=== PATIENT | male | born 1940 | race Caucasian/White ===

== ENCOUNTER 2018-12-31 15:15 | Inpatient (IN) | payer OTHER ==
[2018-12-31 17:40] LABS: ADD MAN DIFF? NO
[2018-12-31 17:43] LABS: WHITE BLOOD COUNT 6.7 10^3/ul (4.8-10.8)
[2018-12-31 17:43] LABS: BASOPHILS % 0.4 % (0.0-2.0); EOSINOPHILS # 0.1 10^3/ul (0.0-0.5); HEMATOCRIT 34.4 % (42.0-52.0); HEMOGLOBIN 11.9 g/dl (14.0-18.0); LYMPHOCYTES % 14.4 % (15.0-51.0); MEAN CORPUSCULAR HEMOGLOBIN 32.2 pg (29.0-33.0); MEAN CORPUSCULAR HGB CONC 34.6 g/dl (32.0-37.0); MEAN PLATELET VOLUME 9.9 fl (7.4-10.4); MONOCYTE # 0.4 10^3/ul (0.3-0.9); MONOCYTES % 6.2 % (0.0-11.0); NEUTROPHIL # 5.2 10^3/ul (1.6-7.5); NEUTROPHILS % 77.7 % (39.0-77.0); PLATELET COUNT 205 10^3/UL (140-415); RED CELL DISTRIBUTION WIDTH 13.2 % (11.5-14.5)
[2018-12-31 17:58] LABS: INR 0.93; PROTIME 12.6 Sec (11.9-14.9)
[2018-12-31 17:59] LABS: PARTIAL THROMBOPLASTIN TIME 30.9 Sec (23.0-35.0)
[2018-12-31 18:00] LABS: ALANINE AMINOTRANSFERASE 37 IU/L (13-69); ALBUMIN 4.4 g/dl (3.3-4.9); ALBUMIN/GLOBULIN RATIO 1.37; ALKALINE PHOSPHATASE 78 IU/L (42-121); ANION GAP 9 (5-13); ASPARTATE AMINO TRANSFERASE 30 IU/L (15-46); BILIRUBIN,INDIRECT 1.1 mg/dl (0-1.1); BILIRUBIN,TOTAL 1.1 mg/dl (0.2-1.3); BLOOD UREA NITROGEN 16 mg/dl (7-20); CALCIUM 9.5 mg/dl (8.4-10.2); CARBON DIOXIDE 24 mmol/L (21-31); CHLORIDE 102 mmol/L (97-110); CREATININE 0.75 mg/dl (0.61-1.24); GLUCOSE 196 mg/dl (70-220); POTASSIUM 4.2 mmol/L (3.5-5.1); SODIUM 135 mmol/L (135-144); TOTAL PROTEIN 7.6 g/dl (6.1-8.1)
[2018-12-31 18:12] LABS: B-TYPE NATRIURETIC PEPTIDE 1190 PG/ML (0-450); TROPONIN-I 0.024 ng/ml (0.000-0.120)
[2018-12-31] MEDS: FUROSEMIDE 40 MG INJ IV ×2 (18:33→22:18)
[2018-12-31] MEDS: NITROGLYCERIN 2% 1 GM OINT PKT TD (18:34)
[2018-12-31] MEDS ORDERED: ACETAMINOPHEN 325 MG TAB PO (19:00)
[2018-12-31] MEDS ORDERED: ONDANSETRON 4 MG INJ IV (19:00)
[2018-12-31] MEDS ORDERED: NACL 0.9% 3 ML SYG IV (19:30)
[2018-12-31] MEDS ORDERED: ROSUVASTATIN 10 MG TAB PO (21:00)
[2018-12-31] MEDS: ASPIRIN 81 MG TAB PO (22:17)
[2018-12-31] MEDS: ATORVASTATIN 40 MG TAB PO ×2 (22:18→22:29)
[2018-12-31] MEDS: TAMSULOSIN (SR) 0.4 MG CAP PO ×2 (22:18→22:29)
[2018-12-31 23:16] LABS: CREATINE KINASE 254 IU/L (23-200)
[2018-12-31 23:30] LABS: CK INDEX 2.9
[2018-12-31 23:43] LABS: CK-MB 7.35 ng/ml (0.0-2.4)
[2019-01-01] MEDS ORDERED: ATROPINE 1 MG/10 ML SYRINGE IV (03:00)
[2019-01-01 06:08] LABS: ADD MAN DIFF? NO
[2019-01-01 06:17] LABS: BASOPHILS % 0.6 % (0.0-2.0); EOSINOPHILS # 0.1 10^3/ul (0.0-0.5); EOSINOPHILS % 1.8 % (0.0-7.0); HEMOGLOBIN 11.3 g/dl (14.0-18.0); LYMPHOCYTES % 20.7 % (15.0-51.0); MEAN CORPUSCULAR HEMOGLOBIN 32.2 pg (29.0-33.0); MEAN CORPUSCULAR HGB CONC 35.3 g/dl (32.0-37.0); MEAN CORPUSCULAR VOLUME 91.2 fl (82.0-101.0); MEAN PLATELET VOLUME 9.5 fl (7.4-10.4); MONOCYTE # 0.4 10^3/ul (0.3-0.9); MONOCYTES % 7.2 % (0.0-11.0); NEUTROPHIL # 3.4 10^3/ul (1.6-7.5); NEUTROPHILS % 69.5 % (39.0-77.0); PLATELET COUNT 194 10^3/UL (140-415); RED BLOOD COUNT 3.51 10^6/ul (4.70-6.10); RED CELL DISTRIBUTION WIDTH 13.2 % (11.5-14.5)
[2019-01-01 06:17] LABS: WHITE BLOOD COUNT 4.9 10^3/ul (4.8-10.8)
[2019-01-01] MEDS: FUROSEMIDE 40 MG INJ IV ×2 (06:32→17:59)
[2019-01-01 06:39] LABS: IRON 41 ug/dl (35-150)
[2019-01-01 06:47] LABS: TROPONIN-I 0.062 ng/ml (0.000-0.120)
[2019-01-01 06:49] LABS: % IRON SATURATION 14 % SAT (22-52); TOTAL IRON BINDING CAPACITY 296 ug/dl (241-421)
[2019-01-01 06:51] LABS: CK-MB 7.37 ng/ml (0.0-2.4)
[2019-01-01 07:02] LABS: CK INDEX 2.3; CREATINE KINASE 318 IU/L (23-200)
[2019-01-01 07:16] LABS: HEMOGLOBIN A1C 6.4 % (0-5.9)
[2019-01-01 07:58] LABS: ALANINE AMINOTRANSFERASE 31 IU/L (13-69); ALBUMIN 3.8 g/dl (3.3-4.9); ALBUMIN/GLOBULIN RATIO 1.31; ALKALINE PHOSPHATASE 66 IU/L (42-121); ANION GAP 4 (5-13); ASPARTATE AMINO TRANSFERASE 28 IU/L (15-46); BILIRUBIN,INDIRECT 0.9 mg/dl (0-1.1); BILIRUBIN,TOTAL 0.9 mg/dl (0.2-1.3); BLOOD UREA NITROGEN 15 mg/dl (7-20); CALCIUM 9.4 mg/dl (8.4-10.2); CARBON DIOXIDE 30 mmol/L (21-31); CHLORIDE 102 mmol/L (97-110); CHOL/HDL RATIO 3.1 RATIO; CHOLESTEROL 126 mg/dl (100-200); CREATININE 0.86 mg/dl (0.61-1.24); GLUCOSE 153 mg/dl (70-220); HDL CHOLESTEROL 40 mg/dl (31-75); LDL CHOLESTEROL,CALCULATED 67 mg/dl; MAGNESIUM 1.8 mg/dl (1.7-2.5); PHOSPHORUS 4.3 mg/dl (2.5-4.9); POTASSIUM 3.7 mmol/L (3.5-5.1); SODIUM 136 mmol/L (135-144); TOTAL PROTEIN 6.7 g/dl (6.1-8.1); TRIGLYCERIDES 97 mg/dl (0-149)
[2019-01-01] MEDS: AMLODIPINE 10 MG TAB PO (08:26)
[2019-01-01] MEDS: ASPIRIN (EC) 81 MG TAB PO (08:26)
[2019-01-01] MEDS: hydrALAzine 20 MG INJ IV (08:30)
[2019-01-01] MEDS ORDERED: NON-FORMULARY/PATIENT OWN MED (Irbesartan-Hydrochlorothiazide 1 EACH) PO (09:00)
[2019-01-01] MEDS: ENOXAPARIN 40 MG/0.4 ML SYG SC (09:37)
[2019-01-01] MEDS: HYDROCHLOROTHIAZIDE 12.5 MG CAP PO (10:39)
[2019-01-01] MEDS: LOSARTAN 50 MG TAB PO (10:39)
[2019-01-01] MEDS: TAMSULOSIN (SR) 0.4 MG CAP PO (20:37)
[2019-01-01] MEDS: ATORVASTATIN 40 MG TAB PO (20:37)
[2019-01-02] MEDS: FUROSEMIDE 40 MG INJ IV (06:09)
[2019-01-02] MEDS: LOSARTAN 50 MG TAB PO (08:53)
[2019-01-02] MEDS: AMLODIPINE 10 MG TAB PO (08:53)
[2019-01-02] MEDS: HYDROCHLOROTHIAZIDE 25 MG TAB PO (08:54)
[2019-01-02] MEDS: ASPIRIN (EC) 81 MG TAB PO (08:54)
[2019-01-02] MEDS: ENOXAPARIN 40 MG/0.4 ML SYG SC (09:00)
[2019-01-02 10:41] LABS: ADD MAN DIFF? NO
[2019-01-02 10:43] LABS: WHITE BLOOD COUNT 5.4 10^3/ul (4.8-10.8)
[2019-01-02 10:43] LABS: BASOPHILS % 0.4 % (0.0-2.0); EOSINOPHILS # 0.1 10^3/ul (0.0-0.5); EOSINOPHILS % 2.6 % (0.0-7.0); LYMPHOCYTES # 0.8 10^3/ul (0.8-2.9); LYMPHOCYTES % 14.9 % (15.0-51.0); MEAN CORPUSCULAR HEMOGLOBIN 32.1 pg (29.0-33.0); MEAN CORPUSCULAR HGB CONC 35.3 g/dl (32.0-37.0); MEAN CORPUSCULAR VOLUME 90.9 fl (82.0-101.0); MEAN PLATELET VOLUME 9.9 fl (7.4-10.4); MONOCYTE # 0.4 10^3/ul (0.3-0.9); NEUTROPHIL # 4.1 10^3/ul (1.6-7.5); NEUTROPHILS % 74.9 % (39.0-77.0); PLATELET COUNT 208 10^3/UL (140-415); RED BLOOD COUNT 3.74 10^6/ul (4.70-6.10); RED CELL DISTRIBUTION WIDTH 13.2 % (11.5-14.5)
[2019-01-02 11:06] LABS: ANION GAP 13 (5-13); BLOOD UREA NITROGEN 25 mg/dl (7-20); CALCIUM 9.3 mg/dl (8.4-10.2); CARBON DIOXIDE 26 mmol/L (21-31); CHLORIDE 96 mmol/L (97-110); CREATININE 1.72 mg/dl (0.61-1.24); GLUCOSE 195 mg/dl (70-220); MAGNESIUM 1.8 mg/dl (1.7-2.5); PHOSPHORUS 5.9 mg/dl (2.5-4.9); POTASSIUM 3.6 mmol/L (3.5-5.1); SODIUM 135 mmol/L (135-144)
[2019-01-02] MEDS: ISOSORBIDE MONONITRATE 20 MG TAB PO (13:59)
[2019-01-02] MEDS: ATORVASTATIN 40 MG TAB PO (21:14)
[2019-01-02] MEDS: TAMSULOSIN (SR) 0.4 MG CAP PO (21:15)
[2019-01-03 06:19] LABS: ADD MAN DIFF? NO
[2019-01-03 06:21] LABS: BASOPHILS % 0.5 % (0.0-2.0); EOSINOPHILS # 0.3 10^3/ul (0.0-0.5); EOSINOPHILS % 4.1 % (0.0-7.0); HEMATOCRIT 34.6 % (42.0-52.0); HEMOGLOBIN 12.4 g/dl (14.0-18.0); LYMPHOCYTES # 1.7 10^3/ul (0.8-2.9); LYMPHOCYTES % 27.7 % (15.0-51.0); MEAN CORPUSCULAR HEMOGLOBIN 32.7 pg (29.0-33.0); MEAN CORPUSCULAR HGB CONC 35.8 g/dl (32.0-37.0); MEAN CORPUSCULAR VOLUME 91.3 fl (82.0-101.0); MEAN PLATELET VOLUME 10.2 fl (7.4-10.4); MONOCYTE # 0.5 10^3/ul (0.3-0.9); MONOCYTES % 7.5 % (0.0-11.0); NEUTROPHIL # 3.6 10^3/ul (1.6-7.5); PLATELET COUNT 247 10^3/UL (140-415); RED BLOOD COUNT 3.79 10^6/ul (4.70-6.10); RED CELL DISTRIBUTION WIDTH 13.2 % (11.5-14.5)
[2019-01-03 07:06] LABS: ANION GAP 12 (5-13); BLOOD UREA NITROGEN 34 mg/dl (7-20); CALCIUM 9.1 mg/dl (8.4-10.2); CARBON DIOXIDE 26 mmol/L (21-31); CHLORIDE 94 mmol/L (97-110); CREATININE 2.59 mg/dl (0.61-1.24); GLUCOSE 171 mg/dl (70-220); PHOSPHORUS 7.3 mg/dl (2.5-4.9); POTASSIUM 3.7 mmol/L (3.5-5.1); SODIUM 132 mmol/L (135-144)
[2019-01-03] MEDS: ASPIRIN (EC) 81 MG TAB PO (08:13)
[2019-01-03] MEDS: HYDROCHLOROTHIAZIDE 25 MG TAB PO (08:13)
[2019-01-03] MEDS: ISOSORBIDE MONONITRATE 20 MG TAB PO (08:13)
[2019-01-03] MEDS: AMLODIPINE 10 MG TAB PO (08:14)
[2019-01-03] MEDS ORDERED: hydrALAzine 20 MG INJ IV (09:30)
[2019-01-03] MEDS: ATORVASTATIN 40 MG TAB PO (20:44)
[2019-01-03] MEDS: TAMSULOSIN (SR) 0.4 MG CAP PO (20:44)
[2019-01-04 06:43] LABS: URIC ACID 9.5 mg/dl (3.1-7.9)
[2019-01-04 06:43] LABS: CREATINE KINASE 502 IU/L (23-200)
[2019-01-04] MEDS: ASPIRIN (EC) 81 MG TAB PO (09:28)
[2019-01-04] MEDS: ISOSORBIDE MONONITRATE 20 MG TAB PO (09:30)
[2019-01-04] MEDS: AMLODIPINE 10 MG TAB PO (09:30)
[2019-01-04] MEDS: ONDANSETRON 4 MG INJ IV (11:06)
[2019-01-04 11:13] LABS: ADD UMIC YES; UR ASCORBIC ACID NEGATIVE (NEGATIVE); UR BILIRUBIN (Dip) NEGATIVE (NEGATIVE); UR BLOOD (Dip) NEGATIVE (NEGATIVE); UR CLARITY SLIGHTLY CLOUDY (CLEAR); UR COLOR YELLOW (YELLOW); UR GLUCOSE (Dip) NEGATIVE (NEGATIVE); UR HYALINE CAST FEW /HPF (NONE SEEN); UR KETONES (Dip) NEGATIVE (NEGATIVE); UR LEUKOCYTE ESTERASE (Dip) NEGATIVE Leu/ul (NEGATIVE); UR NITRITE (Dip) NEGATIVE (NEGATIVE); UR RBC 4 /HPF (0-5); UR SPECIFIC GRAVITY (Dip) 1.015 (1.003-1.030); UR SQUAMOUS EPITHELIAL CELL FEW /HPF (FEW); UR TOTAL PROTEIN (Dip) 1+ mg/dl (NEGATIVE); UR UROBILINOGEN (Dip) 1+ mg/dL (NEGATIVE); UR WBC 6 /HPF (0-5)
[2019-01-04 11:25] LABS: CREATININE,URINE RANDOM 299.26 mg/dl (20-370); SODIUM,URINE RANDOM 16 mmol/L (30-90)
[2019-01-04 12:26] LABS: CREATININE,URINE RANDOM 299.26 mg/dl (20-370)
[2019-01-04] MEDS: TAMSULOSIN (SR) 0.4 MG CAP PO (21:55)
[2019-01-04] MEDS: ATORVASTATIN 40 MG TAB PO (21:55)
[2019-01-05 07:15] LABS: ADD MAN DIFF? NO
[2019-01-05 07:28] LABS: WHITE BLOOD COUNT 4.7 10^3/ul (4.8-10.8)
[2019-01-05 07:28] LABS: BASOPHILS % 0.2 % (0.0-2.0); EOSINOPHILS # 0.2 10^3/ul (0.0-0.5); EOSINOPHILS % 4.7 % (0.0-7.0); HEMATOCRIT 31.3 % (42.0-52.0); LYMPHOCYTES # 1.1 10^3/ul (0.8-2.9); LYMPHOCYTES % 23.9 % (15.0-51.0); MEAN CORPUSCULAR HEMOGLOBIN 31.7 pg (29.0-33.0); MEAN CORPUSCULAR HGB CONC 35.1 g/dl (32.0-37.0); MEAN CORPUSCULAR VOLUME 90.2 fl (82.0-101.0); MEAN PLATELET VOLUME 9.9 fl (7.4-10.4); MONOCYTE # 0.3 10^3/ul (0.3-0.9); MONOCYTES % 7.2 % (0.0-11.0); NEUTROPHILS % 63.8 % (39.0-77.0); PLATELET COUNT 231 10^3/UL (140-415); RED BLOOD COUNT 3.47 10^6/ul (4.70-6.10); RED CELL DISTRIBUTION WIDTH 12.6 % (11.5-14.5)
[2019-01-05 08:01] LABS: ANION GAP 8 (5-13); BLOOD UREA NITROGEN 47 mg/dl (7-20); CALCIUM 8.7 mg/dl (8.4-10.2); CARBON DIOXIDE 28 mmol/L (21-31); CHLORIDE 92 mmol/L (97-110); CREATININE 2.94 mg/dl (0.61-1.24); GLUCOSE 156 mg/dl (70-220); MAGNESIUM 2.3 mg/dl (1.7-2.5); POTASSIUM 3.9 mmol/L (3.5-5.1); SODIUM 128 mmol/L (135-144)
[2019-01-05] MEDS: ISOSORBIDE MONONITRATE 20 MG TAB PO (08:58)
[2019-01-05] MEDS: AMLODIPINE 10 MG TAB PO (08:58)
[2019-01-05] MEDS: ASPIRIN (EC) 81 MG TAB PO (08:58)
[2019-01-05] MEDS: ENOXAPARIN 30 MG/0.3 ML SYG SC (09:10)
[2019-01-05] MEDS: ACETAMINOPHEN 325 MG TAB PO (09:12)
[2019-01-05] MEDS: SOD CHLORIDE 0.9% 1,000 ML IV (10:55)
[2019-01-05] MEDS: TAMSULOSIN (SR) 0.4 MG CAP PO (20:56)
[2019-01-05] MEDS: ATORVASTATIN 40 MG TAB PO (20:56)
[2019-01-06] MEDS: SOD CHLORIDE 0.9% 1,000 ML IV (06:13)
[2019-01-06 07:13] LABS: ADD MAN DIFF? NO
[2019-01-06 07:17] LABS: BASOPHILS % 0.4 % (0.0-2.0); EOSINOPHILS # 0.1 10^3/ul (0.0-0.5); EOSINOPHILS % 2.6 % (0.0-7.0); HEMOGLOBIN 10.6 g/dl (14.0-18.0); LYMPHOCYTES # 0.8 10^3/ul (0.8-2.9); LYMPHOCYTES % 16.6 % (15.0-51.0); MEAN CORPUSCULAR HEMOGLOBIN 31.8 pg (29.0-33.0); MEAN CORPUSCULAR HGB CONC 35.3 g/dl (32.0-37.0); MEAN CORPUSCULAR VOLUME 90.1 fl (82.0-101.0); MEAN PLATELET VOLUME 10.4 fl (7.4-10.4); MONOCYTE # 0.4 10^3/ul (0.3-0.9); MONOCYTES % 7.1 % (0.0-11.0); NEUTROPHIL # 3.6 10^3/ul (1.6-7.5); NEUTROPHILS % 72.9 % (39.0-77.0); PLATELET COUNT 226 10^3/UL (140-415); RED BLOOD COUNT 3.33 10^6/ul (4.70-6.10)
[2019-01-06 07:48] LABS: ANION GAP 13 (5-13); BLOOD UREA NITROGEN 61 mg/dl (7-20); CALCIUM 8.3 mg/dl (8.4-10.2); CARBON DIOXIDE 23 mmol/L (21-31); CHLORIDE 91 mmol/L (97-110); CREATININE 2.41 mg/dl (0.61-1.24); GLUCOSE 166 mg/dl (70-220); SODIUM 127 mmol/L (135-144)
[2019-01-06] MEDS: ISOSORBIDE MONONITRATE 20 MG TAB PO (08:23)
[2019-01-06] MEDS: ENOXAPARIN 30 MG/0.3 ML SYG SC (08:23)
[2019-01-06] MEDS: ASPIRIN (EC) 81 MG TAB PO (08:23)
[2019-01-06] MEDS: AMLODIPINE 10 MG TAB PO (08:23)
[2019-01-06] MEDS: FUROSEMIDE 20 MG INJ IV (09:39)
[2019-01-06] MEDS: CEFAZOLIN 2 GM/50 ML (PMX) 50 ML IVPB (14:30)
[2019-01-06] MEDS: POLYMYXIN/BACITRACIN 1L IRRIG IRR (14:30)
[2019-01-06] MEDS ORDERED: LIDOCAINE 1%/EPI (1:100,000) (MDV) 20 ML (14:30)
[2019-01-06] MEDS ORDERED: FENTAnyl 50 MCG/ML VIAL (14:47)
[2019-01-06] MEDS ORDERED: PROPOFOL 20 ML (14:48)
[2019-01-06] MEDS ORDERED: MIDAZOLAM 1 MG/ML 2 ML INJ (14:48)
[2019-01-06] MEDS ORDERED: morphine 2 MG INJ IV (16:00)
[2019-01-06] MEDS ORDERED: CEFAZOLIN 1 GM INJ IM (18:00)
[2019-01-06] MEDS: TAMSULOSIN (SR) 0.4 MG CAP PO (21:28)
[2019-01-06] MEDS: ATORVASTATIN 40 MG TAB PO (21:28)
[2019-01-06] MEDS: CEFAZOLIN 1 GM/50 ML (PMX) 50 ML IVPB (21:29)
[2019-01-06] MEDS: oxyCODONE 5 MG TAB PO (21:29)
[2019-01-07] MEDS: CEFAZOLIN 1 GM/50 ML (PMX) 50 ML IVPB ×2 (05:13→14:26)
[2019-01-07 06:37] LABS: ADD MAN DIFF? NO
[2019-01-07 06:44] LABS: WHITE BLOOD COUNT 5.6 10^3/ul (4.8-10.8)
[2019-01-07 06:44] LABS: BASOPHILS % 0.4 % (0.0-2.0); EOSINOPHILS # 0.1 10^3/ul (0.0-0.5); HEMATOCRIT 31.6 % (42.0-52.0); LYMPHOCYTES # 0.7 10^3/ul (0.8-2.9); LYMPHOCYTES % 11.6 % (15.0-51.0); MEAN CORPUSCULAR HEMOGLOBIN 31.6 pg (29.0-33.0); MEAN CORPUSCULAR HGB CONC 34.8 g/dl (32.0-37.0); MEAN CORPUSCULAR VOLUME 90.8 fl (82.0-101.0); MONOCYTE # 0.5 10^3/ul (0.3-0.9); NEUTROPHIL # 4.4 10^3/ul (1.6-7.5); NEUTROPHILS % 77.8 % (39.0-77.0); PLATELET COUNT 230 10^3/UL (140-415); RED BLOOD COUNT 3.48 10^6/ul (4.70-6.10); RED CELL DISTRIBUTION WIDTH 12.9 % (11.5-14.5)
[2019-01-07 07:13] LABS: ANION GAP 12 (5-13); BLOOD UREA NITROGEN 55 mg/dl (7-20); CALCIUM 8.8 mg/dl (8.4-10.2); CARBON DIOXIDE 25 mmol/L (21-31); CHLORIDE 97 mmol/L (97-110); CREATININE 1.38 mg/dl (0.61-1.24); GLUCOSE 170 mg/dl (70-220); POTASSIUM 4.1 mmol/L (3.5-5.1); SODIUM 134 mmol/L (135-144)
[2019-01-07] MEDS: ENOXAPARIN 30 MG/0.3 ML SYG SC (09:00)
[2019-01-07] MEDS: AMLODIPINE 10 MG TAB PO (09:11)
[2019-01-07] MEDS: ASPIRIN (EC) 81 MG TAB PO (09:11)
[2019-01-07] MEDS: ISOSORBIDE MONONITRATE 20 MG TAB PO (09:11)
== END 2019-01-07 17:00 | disposition home health service (06) | DRG 242 ==
LOC: E/R 15:15 → TEL 18:42
PROC: 0JH606Z Insertion of Pacemaker, Dual Chamber into Chest Subcutaneous Tissue and Fascia, Open Approach (ICD-10-PCS; principal; 2019-01-06 14:20)
PROC: 02H63JZ Insertion of Pacemaker Lead into Right Atrium, Percutaneous Approach (ICD-10-PCS; 2019-01-06 14:20)
PROC: 02HK3JZ Insertion of Pacemaker Lead into Right Ventricle, Percutaneous Approach (ICD-10-PCS; 2019-01-06 14:20)
DX: I44.2 Atrioventricular block, complete (principal); I50.21 Acute systolic (congestive) heart failure; N17.9 Acute kidney failure, unspecified; E87.1 Hypo-osmolality and hyponatremia; I45.9 Conduction disorder, unspecified; I11.0 Hypertensive heart disease with heart failure; I16.0 Hypertensive urgency; E78.5 Hyperlipidemia, unspecified; N40.0 Benign prostatic hyperplasia without lower urinary tract symptoms; E11.9 Type 2 diabetes mellitus without complications
CPT/HCPCS: 36415; 71045; 76775; 80048; 80053; 80061; 81001; 81003; 82540; 82550; 82553; 82570; 82728; 82962; 83036; 83540; 83735; 83880; 84100; 84155; 84300; 84443; 84484; 84560; 85025; 85610; 85730; 90686; 93005; 93306; 96374; 99285-25